=== PATIENT | female | born 1970 | race Caucasian/White ===

== ENCOUNTER 2023-07-25 12:28 | Outpatient (CLI) | payer OTHER | END 2023-07-25 12:29 | disposition home or self-care (01) | LOC: BICRAD 12:28 | PROVIDERS: ATTEND Preventive Medicine Occupational Medicine | DX: M51.36 Other intervertebral disc degeneration, lumbar region (principal); M18.0 Bilateral primary osteoarthritis of first carpometacarpal joints; M19.171 Post-traumatic osteoarthritis, right ankle and foot; M47.816 Spondylosis without myelopathy or radiculopathy, lumbar region | CPT/HCPCS: 72100 ==